=== PATIENT | female | born 1980 | race Caucasian/White ===

== ENCOUNTER → 2019-12-22 11:38 | Outpatient (CLI) | payer OTHER, SELFPAY ==
--- NOTE | ~2019-12-22 | MM_ITS ---
EXAMINATION: MM screening [facility] BI w diaz HISTORY: Screening mammogram TECHNIQUE: Craniocaudal and mediolateral oblique 3-D tomosynthesis images were obtained and synthetic 2-D images were generated. CAD analysis was submitted and interpreted. COMPARISON: None, baseline BREAST PARENCHYMAL COMPOSITION: There are scattered areas of fibroglandular density. FINDINGS: There is no evidence of suspicious mass, calcification, or architectural distortion to sugg est malignancy in either breast. IMPRESSION: 1. No mammographic evidence of malignancy. 2. Recommend routine screening mammography in one year. BI-RADS Category 1: Negative Reviewed, dictated and finalized at location A. TY BOND AGENT
== END ==
PROVIDERS: Visit Provider Nurse Practitioner Women's Health
DX: Z12.31 Encounter for screening mammogram for malignant neoplasm of breast (principal)
CPT/HCPCS: 77063; 77067

== ENCOUNTER → 2020-03-21 10:58 | Outpatient (CLI) | payer OTHER, SELFPAY ==
--- NOTE | ~2020-03-21 | US_ITS ---
EXAMINATION: US pelvic complete w TV DATE: 03/21/2020 11:34 INDICATION: Heavy menstrual bleeding Comparison:No prior studies for comparison. TECHNIQUE: Multiple transabdominal and endovaginal sonographic images of the pelvis performed. FINDINGS: The uterus measures 12.2 x 5.6 x 5.7 cm. There are multiple ill-defined hypoechoic myometri al masses, consistent with uterine fibroids. The endometrial complex measures 6 mm. The right ovary is not demonstrated. The left ovary contains a 2.7 cm cyst. The left ovary measures 3 .4 x 2.9 x 2.5 cm. There is no free fluid in the pelvis. There are no abnormal masses seen on either side. IMPRESSION: 1. Enlarged fibroid uterus, largest discrete fibroid measuring 3 cm. 2: 2.7 cm left ovarian cyst. Reviewed, dictated and finalized at location B. 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
== END ==
PROVIDERS: Visit Provider Obstetrics & Gynecology
DX: N92.0 Excessive and frequent menstruation with regular cycle (principal); N83.202 Unspecified ovarian cyst, left side; D25.9 Leiomyoma of uterus, unspecified
CPT/HCPCS: 76830; 76856

== ENCOUNTER → 2021-07-13 09:45 | Outpatient (CLI) | payer OTHER, SELFPAY ==
--- NOTE | ~2021-07-13 | MM_ITS ---
EXAMINATION: MM screening inder BI w diaz HISTORY: Screening mammogram TECHNIQUE: Craniocaudal and mediolateral oblique 3-D tomosynthesis images were obtained and synthetic 2-D images were generated. CAD analysis was submitted and interpreted. COMPARISON: 12/22/2019 bilateral screening mammogram BREAST PARENCHYMAL COMPOSITION: There are scattered areas of fibroglandular density. FINDINGS: There is no evidence of suspicious mass, calcification, or architectural distortion to sugg est malignancy in either breast. There has been no suspicious interval change. IMPRESSION: 1. No mammographic evidence of malignancy. 2. Recommend routine screening mammography in one year. BI-RADS Category 1: Negative Reviewed, dictated and finalized at location A.
== END ==
PROVIDERS: PCP Obstetrics & Gynecology Gynecologic Oncology; Visit Provider Obstetrics & Gynecology Gynecologic Oncology
DX: Z12.31 Encounter for screening mammogram for malignant neoplasm of breast (principal)
CPT/HCPCS: 77063; 77067

== ENCOUNTER → 2022-12-13 10:23 | Outpatient (CLI) | payer OTHER, SELFPAY ==
--- NOTE | ~2022-12-13 | MM_ITS ---
EXAMINATION: MM screening [facility] BI w diaz HISTORY: Screening mammogram TECHNIQUE: Craniocaudal and mediolateral oblique 3-D tomosynthesis images were obtained and synthetic 2-D images were generated. CAD analysis was submitted and interpreted. COMPARISON: 07/13/2021, 12/22/2019 BREAST PARENCHYMAL COMPOSITION: There are scattered areas of fibroglandular density. FINDINGS: No suspicious mass, calcification, or architectural distortion are identified in either francisco ast to suggest malignancy. There has been no suspicious interval change. IMPRESSION: 1. No mammographic evidence of malignancy. 2. Recommend routine screening mammography in one year. BI-RADS Category 1: Negative Reviewed, dictated and finalized at location A.
== END ==
PROVIDERS: PCP Obstetrics & Gynecology Gynecologic Oncology; Visit Provider Obstetrics & Gynecology Gynecologic Oncology
DX: Z12.31 Encounter for screening mammogram for malignant neoplasm of breast (principal)
CPT/HCPCS: 77063; 77067

== ENCOUNTER 2023-12-26 09:54 | Outpatient (CLI) | payer OTHER, SELFPAY ==
--- NOTE | ~2023-12-26 | MM_ITS ---
EXAMINATION: MM screening [facility] BI w diaz HISTORY: Screening mammogram TECHNIQUE: Craniocaudal and mediolateral oblique 3-D tomosynthesis images were obtained and synthetic 2-D images were generated. CAD analysis was submitted and interpreted. COMPARISON: 12/13/2022, 07/13/2021, 12/22/2019 BREAST PARENCHYMAL COMPOSITION:Not Dense. There are scattered areas of fibroglandular density. FINDINGS: No suspicious mass, calcification, or architectural distortion are identified in either francisco ast to suggest malignancy. There has been no suspicious interval change. IMPRESSION: No mammographic evidence of malignancy. Recommend routine screening mammography in one year. BI-RADS Category 1: Negative Reviewed, dictated and finalized at location . 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
== END 2023-12-26 09:55 | disposition home or self-care (01) ==
PROVIDERS: PCP Obstetrics & Gynecology; Visit Provider Obstetrics & Gynecology
DX: Z12.31 Encounter for screening mammogram for malignant neoplasm of breast (principal)
CPT/HCPCS: 77063; 77067

== ENCOUNTER 2024-04-24 15:53 | Emergency (ER) | payer OTHER, SELFPAY ==
--- NOTE | ~2024-04-24 | XR_ITS ---
EXAM: XR lumbar spine min 4V DATE: 04/24/2024 16:51 HISTORY: pain . COMPARISON: None available. FINDINGS: Cholecystectomy clips. 5 nonrib-bearing lumbar-type vertebral bodies. Pedicles intact. Norm al vertebral body alignment. Vertebral body heights preserved. Mild multilevel degenerative disc dise ase. Normal facets and posterior elements. No fracture or dislocation. IMPRESSION: No acute fracture or traumatic malalignment detected in the lumbar spine. Reviewed, dictated and finalized at location K.
--- OUTSIDE RECORDS SUMMARY | 2024-04-24 15:56 | XMS_ITS ---
Author Organization 1 OF Reema sandy DPM [facility] Address [address] [address] Care Team Providers Care Advanced Manufacturing Engineer Name Role Phone Himanshu Mars M.D. Primary Care Provider Jr Butcher [facility] [phone] REASON FOR VISIT Fluconazole Encounters Encounter Location Date Provider Diagnosis 1 OF [facility] [address] [facility] [address] [place] [address] 01/14/2024 Jr Sy Plan Of Treatment No Information Progress Notes * Argenis GARCIADOB:1980 ([age] yo F)Acc No.[id number]:01/14/2024 Progress Notes Patient: Argenis LEIGH Provider: Irene Sy DPM :1980 A ge:43 Y S ex:Female Date:01/14/2024 Address:[address] [facility] [place] [facility] Pcp:Himanshu Mars M.D. Subjective: * Chief Complaints: * 1 . Fluconazole. * Medical History: Objective: * Vitals: Assessment: Plan: * Treatment: * Images: * Electronic signature of Jr Sy DPM on 04/24/2024 at 03:56 PM CDT Sign off status: Pending * Provider: Irene Sy DPM Date: 1 03/16/2023 Generated for Printi ng/Faxing/eTransmitting on: 0 04/24/2024 03:56 PM CDT
--- OUTSIDE RECORDS SUMMARY | 2024-04-24 15:56 | XMS_ITS ---
Author Organization 1 OF Reema sandy [facility] Address [address] [address] Care Team Providers Care Showroom Salesperson Name Role Phone Himanshu Mars M.D. Primary Care Provider Jr Butcher [facility] [phone] Allergies Allergen (clinical drug ingredient) Drug/Non Drug Allergy documented on EMR Reaction Allergy Type Onset Date Status codeine Codeine Unknown Drug Allergy Active Substance with sulfonamide structure and antibacterial mechanism of action (substance) Sulfa Antibiotics Unknown Drug Allergy Active REASON FOR VISIT fluconazole Medications Medication SIG (Take, Route, Fr equency, Duration) Notes Start Date End Date Status Multivitamin Active Xochilt Active buPROPion HCl Active Fluconazole 150 MG 3 tablets all at onc e Orally once a week for 12 weeks 01/30/2024 Active Fluconazole 150 MG 3 tablets all at onc e Orally once a week for 12 weeks 09/24/2023 Active Vital Signs Height 65 in 01/30/2024 Weight 200 lbs 01/30/2024 BMI 33.28 kg/m2 01/30/2024 Encounters Encounter Location Date Provider Diagnosis 1 OF Reema Mabry [facility] [address] [address] 01/30/2024 Jr Sy Onychomycosis B35.1 Assessments Encounter Date Diagnosis (ICD Code) Assessment Notes Treatment Notes Treatment Clinical Notes Section Notes 01/30/2024 Onychomycosis (ICD-10 - B35.1) Evaluation today included a review of medical history, review of systems, discussion of exam findings, and review of diagnoses and treatment options. I reviewed the diagnosis and treatment plan with the patient and advised the condition seems to be improving and recommended continuation of oral fluconazole 450mg one day per week for another 12 weeks with RTO in 3 months for evaluation of effectiveness. Plan Of Treatment Medication Medication Name Sig Start Date Stop Date Notes Fluconazole 150 MG 3 tablets all at onc e Orally once a week for 12 weeks 01/30/2024 Treatment Notes Assessment Notes Onychomycosis Evaluation today included a review of medical history, review of systems, discussion of exam findings, and review of diagnoses and treatment options. I reviewed the diagnosis and treatment plan with the patient and advised the condition seems to be improving and recommended continuation of oral fluconazole 450mg one day per week for another 12 weeks with RTO in 3 months for evaluation of effectiveness. Next Appt Details Follow Up: prn, Reason: Progress Notes * Argenis GARCIADOB:1980 ([age] yo F)Acc No.[id number]:01/30/2024 Progress Notes Patient: Argenis LEIGH Provider: Irene Sy DPM :1980 A ge:43 Y S ex:Female Date:01/30/2024 Address:[address] [place], [place] [id number] Pcp:Himanshu Mars M.D. Subjective: * Chief Complaints: * F luconazole * HPI: Champ Romero assisting with visit:: HPI/Rooming: Kelly zhang reason for visit:: 53 y/o Male RTO for f/u of 43 y/o Female RTO for f/u of onychomychosis. At last visit treatment consisted of rx for Fluconazole over the course of 3 months.Pt states that the ontchomycosis is gone and she has had no issues with treatment. * Medical History: * Surgical History: N o Surgical History documented. * Hospitalization/Major Diagno stic Procedure: N o Hospitalization History. * Family History: N o Family History documented.. * Medications: T akingMultivitamin Xochilt buPROPion HCl Fluconazole 150 MG Tablet 3 tablets all at once Orally once a week Medication List reviewed and reconciled with the patientTaking Multivitamin Taking Xochilt Taking buPROPion HCl Taking Fluconazole 150 MG Tablet 3 tablets all at once Orally once a week Medication List reviewed and reconciled with the patient * Allergies: S ulfa AntibioticsCodeineno[Allergies Verified] Objective: * Vitals: W t:200lbs, Wt-k.72 kg, Ht:65in, BMI:33.28Index. * Examination: G eneral Examination: Constitutional / Appearance: N o acute distress , Well nourished, Appropriate personal hygiene. Mental status: C ooperative, Oriented to person, place and time, Mood and affect: normal, Judgement and intellect: normal with appropriate response to questions. Shoes today: XXXX. Nails: Nail plates of:, T 5, a ppear, r elatively thickened, d ystrophic, d iscolored, w ith subungual debris. Assessment: * Assessment: 1. O nychomycosis - B35.1 (Primary) Plan: * Treatment: * Procedure Codes: * Preventive Medicine: Counseling: C are goal follow-up plan: BMI counseling provided to patient:?Lifestyle education * Follow Up: p rn * Images: Drawing:mobile_01/29 10:04:56 * AUDIT MANAGER Sign off status: Completed true * Provider: Irene Sy DPM Date: 1 04/01/2023 Generated for Carolyn stuart/Naveen/Jeovany on: 0 04/24/2024 03:55 PM CDT History and Physical Notes * HPI (History of Present Illness) Category Sub-Category Detail Notes Category Not es Primary reason for visit: 53 y/o Male RTO for f/u of 43 y/o Female RTO for f/u of onychomychosis. At last visit treatment consisted of rx for Fluconazole over the course of 3 months.Pt states that the ontchomycosis is gone and she has had no issues with treatment. MA assisting with visit: HPI/Rooming: Suleman Examination Category Sub-Category Detail Notes Category Not es General Examination Mental status: Cooperative, Oriented to person, place and time, Mood and affect: normal, Judgement and intellect: normal with appropriate response to questions Nails: Nail plates of:, T5, appear, relatively thickened, dystrophic, discolored, with subungual debris. Shoes today: XXXX Constitutional / Appearance: No acute di stress , Well nourished, Appropriate personal hygiene
--- OUTSIDE RECORDS SUMMARY | 2024-04-24 15:56 | XMS_ITS | Patient Health Record ---
Author Organization 1 OF Reema sandy [facility] Address [address] [facility] [address] [place] [address] Care Team Providers Care Metal Cleaner Name Role Phone Himanshu Mars M.D. Primary Care Provider Jr Butcher [phone] Allergies Allergen (clinical drug ingredient) Drug/Non Drug Allergy documented on EMR Reaction Allergy Type Onset Date Status codeine Codeine Unknown Drug Allergy Active Substance with sulfonamide structure and antibacterial mechanism of action (substance) Sulfa Antibiotics Unknown Drug Allergy Active Results Component Value Reference Range Notes Chem-12 (complete metabolic panel) Reviewed date:09/05/2023 12:00:01 PM Interpretation:All labs WNL. Performing Lab: Notes/Report: All labs WNL. [facility] Pathology : Nail biop sy - higher sensitivity (PAS, GMS)[facility] Pathology : Nail biopsy - Fungus Identification - PCR Assay Reviewed date:09/04/2023 09:00:17 AM Interpretation:A PAS reaction and GMS stain demonstrate fungal element. Performing Lab: Notes/Report: A PAS reaction and GMS stain demonstrate fungal element. Reason For Referral No Information Medications Medication SIG (Take, Route, Fr equency, Duration) Notes Start Date End Date Status Multivitamin Active Xochilt Active buPROPion HCl Active Fluconazole 150 MG 3 tablets all at onc e Orally once a week for 12 weeks 01/30/2024 Active Fluconazole 150 MG 3 tablets all at onc e Orally once a week for 12 weeks 09/24/2023 Active Social History Tobacco Use: Social History Observation Description Date Details (start date - stop date) Never Smoker NA - NA Tobacco Control (Standard) Question Answer Notes Tobacco use: Nonsmoker Vital Signs Height 65 in 01/30/2024 Weight 200 lbs 01/30/2024 BMI 33.28 kg/m2 01/30/2024 Encounters Encounter Location Date Provider Diagnosis 1 OF Reema Mabry [facility] [address] [place] [address] 08/29/2023 Jr Sy Onychogryphosis L60. 2 ; Ingrowing nail L60.0 and Toe pain, left M79.675 1 OF Reema Mabry [place] [address] [place] [address] 09/24/2023 Jr Kerrie Onychomycosis B35.1 1 OF Reema Mabry [facility] [address] [place] [address] 01/30/2024 Jr Sy Onychomycosis B35.1 1 OF Reema Mabry [place] [address] [place] [address] 08/28/2023 Jr Sy 1 OF Reema Mabry [place] [address] [place] [address] 09/03/2023 Jr Sy 1 OF Reema Mabry [place] [address] [place] [address] 09/05/2023 Jr Sy Assessments Encounter Date Diagnosis (ICD Code) Assessment Notes Treatment Notes Treatment Clinical Notes Section Notes 08/29/2023 Onychogryphosis (ICD-10 - L60.2) Discussed tx options including topical and/or oral antifungal. The patient was advised no guarantee with any treatment. Patient is interested in treatment with oral medication and I thus recommended confirming presence of fungus and potentially confirming the type of fungus present as one variety of fungus may respond better to one medication vs another. Nail biopsy performed to symptomatic nail and submitted for PAS and fungal assay test. I also advised treatment of fungus with prolonged course of oral anti-fungal medication requires a blood test to insure no pre-existing liver or kidney condition exists. Dispensed order for blood test. Dispensed literature discussing onychomycosis. We will hold off on any medication pending results of nail biopsy and Chem-12. We will see patient back in 1 month to review results of nail biopsy and blood tests. Patient demonstrated understanding of the plan. 09/24/2023 Onychomycosis (ICD-10 - B35.1) Evaluation today included a review of medical history, review of systems, discussion of exam findings, and review of diagnoses and treatment options. I reviewed the results of the nail biopsy which indicated presence of fungus and recommended proceeding with oral antifungal for best results. Discussed and recommended oral fluconazole including potential for side effects and the dosing instructions consisting of taking three 150mg tablets once weekly for 8-12 months. Advised follow-up visit in 3 months for evaluation of effectiveness of the medication. Patient advised to contact office with any concerns or to report any side effects. All questions were answered and the patient desires to proceed with treatment. (Rx fluconazole 150mg, 3 tablets once weekly x 12 weeks, dispense 36 tabs, No refills) 01/30/2024 Onychomycosis (ICD-10 - B35.1) Evaluation today [...] in 3 months for evaluation of effectiveness. 08/29/2023 Ingrowing nail (ICD-10 - L60.0) Discussed ingrown toenail condition and explained in detail conservative and surgical options of care including debridement / slant back procedure vs nail avulsion vs matrixectomy. Discussed pros and cons of each procedure including temporary relief vs more permanent relief with matrixectomy procedure but longer healing time. ; Patient elected to proceed with matrixectomy procedure of the affected toe(s). 08/29/2023 Toe pain, left (ICD-10 - M79.675) Plan Of Treatment No Information Insurance Providers Payer Name Payer Address Payer Phone Subscriber Number Group Number Insured Name Patient Relationship to Insured Coverage Start Date Coverage End Date Aryan [address] [place] [id number] Argenis Ahn Self - patient is the insured Medical (General) History Medical History History ICD Code asthma
--- OUTSIDE RECORDS SUMMARY | 2024-04-24 15:56 | XMS_ITS ---
Author Organization 1 OF Reema sandy [facility] Address [address] [facility] [address] [place] [address] Care Team Providers Care Architecture Intern Name Role Phone Himanshu Mars M.D. Primary Care Provider rJ Butcher [facility] [phone] Allergies Allergen (clinical drug ingredient) Drug/Non Drug Allergy documented on EMR Reaction Allergy Type Onset Date Status codeine Codeine Unknown Drug Allergy Active Substance with sulfonamide structure and antibacterial mechanism of action (substance) Sulfa Antibiotics Unknown Drug Allergy Active REASON FOR VISIT Bako/Labs Medications Medication SIG (Take, Route, Fr equency, Duration) Notes Start Date End Date Status Multivitamin Active Xochilt Active buPROPion HCl Active Fluconazole 150 MG 3 tablets all at onc e Orally once a week for 12 weeks 09/24/2023 Active Vital Signs Height 65 in 09/24/2023 Weight 200 lbs 09/24/2023 BMI 33.28 kg/m2 09/24/2023 Encounters Encounter Location Date Provider Diagnosis 1 OF Reema Mabry [facility] [address] [facility] [address] [place] [address] 09/24/2023 Jr Sy Onychomycosis B35.1 Assessments Encounter Date Diagnosis (ICD Code) Assessment Notes Treatment Notes Treatment Clinical Notes Section Notes 09/24/2023 Onychomycosis (ICD-10 - B35.1) Evaluation today [...] 12 weeks, dispense 36 tabs, No refills) Plan Of Treatment Medication Medication Name Sig Start Date Stop Date Notes Fluconazole 150 MG 3 tablets all at onc e Orally once a week for 12 weeks 09/24/2023 Treatment Notes Assessment Notes Onychomycosis Evaluation today [...] 12 weeks, dispense 36 tabs, No refills) Next Appt Details Follow Up: 3.5 months, Reaso n: Progress Notes * JOSE, ArgenisDOB:1980 ([age] yo F)Acc No.[id number]:09/24/2023 Progress Notes Patient: Argenis LEIGH Provider: Irene Sy DPM :1980 A ge:43 Y S ex:Female Date:09/24/2023 Address:[address] [place], [place] [id number] Pcp:Himanshu Mars M.D. Subjective: * Chief Complaints: * B ako/Labs * HPI: Champ Romero assisting with visit:: HPI/Rooming: Ryan. Luci zhang reason for visit:: 43 y/o F RTO for f/u onychogryphosis. At last visit orders for BAKO and CMP were sent. Pt also RTO for f/u matrixectomy. At last visit Pt had medial nail bed matrixectomy of TA and Rx for neomycin drops was dispensed. Today pt reports doing fine. * Medical History: * Surgical History: N o Surgical History documented. * Hospitalization/Major Diagno stic Procedure: N o Hospitalization History. * Family History: N o Family History documented.. * Medications: T akingMultivitamin Xochilt buPROPion HCl Taking Multivitamin Taking Xochilt Taking buPROPion HCl ActeveaauqzmDpvrklwm-Hmjqztqlx-Hfcaxtdl 0.1 % Suspension 1-2 drops to affected toe(s) until healed topical daily Medication List reviewed and reconciled with the patientDiscontinued Ualujknn-Ckuljjfva-Ykrofrmn 0.1 % Suspension 1-2 drops to affected toe(s) until healed topical daily Medication List reviewed and reconciled with the patient * Allergies: S ulfa AntibioticsCodeineno[Allergies Verified] Objective: * Vitals: W t:200lbs, Wt-k.72 kg, Ht: 65 in, BMI:33.28Index. * P ast Orders: L ab:Chem-12 (complete metabolic panel) (Order Date - 08/29/2023) (Collection Date & Time - 09/05/2023) Result: All labs WNL. L ab:[facility] Pathology : Nail biopsy - higher sensitivity (PAS, GMS)[facility] Pathology : Nail biopsy - Fungus Identification - PCR Assay (Order Date - 08/29/2023) (Collection Date & Time - 09/03/2023) Result: A PAS reaction and GMS stain demonstrate fungal element. * Examination: G eneral Examination: Constitutional / Appearance: N o acute distress , Well nourished, Appropriate personal hygiene. Mental status: C ooperative, Oriented to person, place and time, Mood and affect: normal, Judgement and intellect: normal with appropriate response to questions. Shoes today: f lats, . L ower Extremity DERM: : Nails: N ail plates of:, T5, appear, relatively thickened, dystrophic, discolored, with subungual debris. Assessment: * Assessment: 1. O nychomycosis - B35.1 (Primary) Plan: * Treatment: * Procedure Codes: * Follow Up: 3 .5 months * Images: Drawing:mobile_09/23 08:16:31 * Sign off status: Completed true * Provider: Irene Sy DPM Date: 0 09/24/2023 Generated for Carolyn stuart/Naveen/Jeovany on: 0 04/24/2024 03:56 PM CDT History and Physical Notes * HPI (History of Present Illness) Category Sub-Category Detail Notes Category Not es Primary reason for visit: 43 y/o F RTO for f/u onychogryphosis. At last visit orders for BAKO and CMP were sent. Pt also RTO for f/u matrixectomy. At last visit Pt had medial nail bed matrixectomy of TA and Rx for neomycin drops was dispensed. Today pt reports doing fine. MA assisting with visit: HPI/Rooming: Axel Examination Category Sub-Category Detail Notes Category Not es General Examination Mental status: Cooperative, Oriented to person, place and time, Mood and affect: normal, Judgement and intellect: normal with appropriate response to questions Shoes today: flats, Exam unchanged from prior visit: Constitutional / Appearance: No acute di stress , Well nourished, Appropriate personal hygiene Lower Extremity DERM: Nails: Nail plate s of:, T5, appear, relatively thickened, dystrophic, discolored, with subungual debris
[2024-04-24 16:08] VITALS: BP 100/72; PULSE 81; RESP 20; TEMP 36.4; O2SAT 100
[2024-04-24 18:10] VITALS: BP 133/71; PULSE 77; RESP 18; O2SAT 100
--- OUTSIDE RECORDS SUMMARY | 2024-04-24 18:23 | XMS_ITS | Encounter Summary ---
Author Organization [facility] Address [facility] [place] [address] Care Team Providers Care Manager Council Name Role Phone Himanshu Mars MD Primary Care Provider + Encounter Details Date Type Department Care Team (Late st Contact Info) Description 02/25/2002 Abstract [facility] Conversion Md, Generic Conversion, Social History Tobacco Use Types Packs/Day Years Used Date Smoking Tobacco: Never Assessed Comments Unknown Sex and Gender Information Value Date Recorded Sex Assigned at Not on file Legal Sex Female 5:06 PM CDT Gender Identity Not on file Sexual Orientation Not on file documented as of this encounter Plan of Treatment Not on file documented as of this encounter Visit Diagnoses Not on filedocumented in this encounter Additional Health Concerns Infection Onset Date Last Indicated Resolved Time COVID-19 Rule Out 05/13/2020 05/13/2020 05/14/2020 4:11 PM CDT documented as of this encounter Care Teams Manager Council Relationship Specialty Start Date End Date Himanshu Mars MD [address] [facility] [address] [place] [address] PCP - General FAMILY PRACTICE 10/16/18 documented as of this encounter
--- OUTSIDE RECORDS SUMMARY | 2024-04-24 18:23 | XMS_ITS | Encounter Summary ---
Author Organization [facility] Address [facility] [place] [address] Care Team Providers Care Carton Waxing Machine Operator Name Role Phone Himanshu Mars MD Primary Care Provider + Encounter Details Date Type Department Care Team (Late st Contact Info) Description 11/20/2020 [employer] Message [address] [phone] [facility], [facility] Provider results Social History Tobacco Use Types Packs/Day Years Used Date Smoking Tobacco: Never Smokeless Tobacco: Never Alcohol Use Standard Drinks/Week Comments Yes 0 (1 standard drink = 0.6 oz pur e alcohol) social AUDIT-C Answer Date Recorded Frequency of Alcohol Consumption Never 09/15/2018 Average Number of Drinks Not on file 019 Frequency of Binge Drinking Not on file 07/2018 PHQ-2 Answer Date Recorded PHQ-2 Score - If the patient scores above 3, please move on to questions 3-9 0 09/29/2020 Comments No Sex and Gender Information Value Date Recorded Sex Assigned at Not on file Legal Sex Female 5:06 PM CDT Gender Identity Not on file Sexual Orientation Not on file COVID-19 Exposure Response Date Recorded In the last month, have you been in contact with someone who was confirmed or suspected to have Coronavirus / COVID-19? No / Unsure 11/13/2020 4:30 PM CDT documented as of this encounter Plan of Treatment Not on file documented as of this encounter Visit Diagnoses Not on filedocumented in this encounter Additional Health Concerns Assessment Noted Time PHQ-9 Depression Total Score: 0 09/30/19 21 3:52 PM CDT documented as of this encounter Care Teams Carton Waxing Machine Operator Relationship Specialty Start Date End Date Himanshu Mars MD [address] [facility] [address] [place] [phone] PCP - General FAMILY PRACTICE 10/16/18 documented as of this encounter
--- OUTSIDE RECORDS SUMMARY | 2024-04-24 18:23 | XMS_ITS | Encounter Summary ---
Author Organization [facility] Address [facility] [place] [address] Care Team Providers Care Hardware Installation Coordinator Name Role Phone Himanshu Mars MD Primary Care Provider + Encounter Details Date Type Department Care Team (Late st Contact Info) Description 10/09/2020 [employer] Message [address] [phone] [facility], [facility] Provider MRI Social History Tobacco Use Types Packs/Day Years Used Date Smoking Tobacco: Never Smokeless Tobacco: Never Alcohol Use Standard Drinks/Week Comments Yes 0 (1 standard drink = 0.6 oz pur e alcohol) social AUDIT-C Answer Date Recorded Frequency of Alcohol Consumption Never 09/15/2018 Average Number of Drinks Not on file 019 Frequency of Binge Drinking Not on file 0807/2018 PHQ-2 Answer Date Recorded PHQ-2 Score - [...] have Coronavirus / COVID-19? No / Unsure 09/29/2020 10:34 AM CDT documented as of this encounter Plan of Treatment Not on file documented as of this encounter Visit Diagnoses Not on filedocumented in this encounter Additional Health Concerns Assessment Noted Time PHQ-9 Depression Total Score: 0 09/30/19 21 3:52 PM CDT documented as of this encounter Care Teams Hardware Installation Coordinator Relationship Specialty Start Date End Date Himanshu Mars MD [address] [facility] [address] [place] [phone] PCP - General FAMILY PRACTICE 10/16/18 documented as of this encounter
--- OUTSIDE RECORDS SUMMARY | 2024-04-24 18:23 | XMS_ITS | Encounter Summary ---
Author Organization [facility] Address [facility]6 [place] [address] Care Team Providers Care Energy Professional Name Role Phone Himanshu Mars MD Primary Care Provider + Encounter Details Date Type Department Care Team (Late st Contact Info) Description 01/13/2023 [employer] Message [facility] [address] [place] [address] Himanshu Mars MD [address] [place] [address] [place] [address] COVID-19 Positive Test Social History Tobacco Use Types Packs/Day Years Used Date Smoking Tobacco: Never Smokeless Tobacco: Never Alcohol Use Standard Drinks/Week Comments Yes 0 (1 standard drink = 0.6 oz pur e alcohol) Socially AUDIT-C Answer Date Recorded Frequency of Alcohol Consumption Never 09/15/2018 Average Number of Drinks Not on file 019 Frequency of Binge Drinking Not on file 07/2018 PHQ-2 Answer Date Recorded Patient Health Questionnaire-2 Score 0 01/18/2022 Comments No Sex and Gender Information Value Date Recorded Sex Assigned at Not on file Legal Sex Female 5:06 PM CDT Gender Identity Not on file Sexual Orientation Not on file documented as of this encounter Plan of Treatment Not on file documented as of this encounter Results * (ABNORMAL) BASIC METABOLIC PANEL (01/16/2023 9:33 AM DOUBLE NEEDLE OPERATOR) [facility] Signature GLUCOSE 88 70 - 99 MG/DL 01/16/2023 10:14 AM [facility] BUN 10 7 - 18 MG/DL 01/16/2023 10:14 AM [facility] CREATININE S/P/B 0.85 0.55 - 1.02 MG/DL 01/16/2023 10:14 AM [facility] SODIUM S/P/B 140 136 - 145 MMOL/L 01/16/2023 10:14 AM [facility] POTASSIUM S/P/B 4.0 3.5 - 5.1 MMOL/L 01/16/2023 10:14 AM [facility] CHLORIDE S/P/B 103 100 - 108 MMOL/L 01/16/2023 10:14 AM [facility] CO2 28.8 21 - 32 MMOL/L 01/16/2023 10:14 AM [facility] CALCIUM S/P/B 8.6 8.5 - 10.1 MG/DL 01/16/2023 10:14 AM [facility] ANION GAP 8.2 5 - 15 MMOL/L 01/16/2023 10:14 AM [facility] BUN CREATININE RATIO 11.8 6 - 26 01/16/2023 10:14 AM [facility] GFR ESTIMATE 87(L) >90 ML/MIN/1.7 3 M2 01/16/2023 10:14 AM [facility] Comment: NOTE: eGFR is not calculated for patients <18 years of age. This is an estimated GFR calculation using the new CKD EPI creatinine equation without race and so does not require a correction factor for race. This estimated GFR should not be used for calculating drug doses. 01/16/2023 9:33 AM DOUBLE NEEDLE OPERATOR Himanshu Mars MD LABORATORY Final Re sult [facility] [address] [place] [address], documented in this encounter Visit Diagnoses Diagnosis COVID- Primary documented in this encounter Additional Health Concerns Assessment Noted Time PHQ-9 Depression Total Score: 0 03/27/19 22 4:43 PM DOUBLE NEEDLE OPERATOR documented as of this encounter Care Teams Energy Professional Relationship Specialty Start Date End Date Himanshu Mars MD [address] [phone] PCP - General FAMILY PRACTICE 10/16/18 documented as of this encounter
--- OUTSIDE RECORDS SUMMARY | 2024-04-24 18:23 | XMS_ITS | Encounter Summary ---
Author Organization [facility] Address [facility] [place] [address] Care Team Providers Care Director Of Product Marketing Name Role Phone Himanshu Mars MD Primary Care Provider + Encounter Details Date Type Department Care Team (Late st Contact Info) Description 10/17/2020 [employer] Message [facility] [address] [place] [address] Himanshu Mars MD [address] [place] [address] [place] [address] RE: Follow Up/Update Social History Tobacco Use Types Packs/Day Years [...] documented as of this encounter Care Teams Director Of Product Marketing Relationship Specialty Start Date End Date Himanshu Mars MD [address] [phone] PCP - General FAMILY PRACTICE 10/16/18 documented as of this encounter
--- OUTSIDE RECORDS SUMMARY | 2024-04-24 18:23 | XMS_ITS | Encounter Summary ---
Author Organization [facility] Address [facility] [place] [address] Care Team Providers Care Supervisor Carbon Paper Coating Name Role Phone Himanshu Mars MD Primary Care Provider + Encounter Details Date Type Department Care Team (Late st Contact Info) Description 09/25/2020 [email or web address] Message [employer] [facility] [facility] [address] [place] [address] [employer], [facility] Provider RE: Request to Access a Minor's Record Social History Tobacco Use Types Packs/Day Years [...] Diagnoses Not on filedocumented in this encounter Care Teams Supervisor Carbon Paper Coating Relationship Specialty Start Date End Date Himanshu Mars MD [address] [facility] [address] [place] [phone] PCP - General FAMILY PRACTICE 10/16/18 documented as of this encounter
--- OUTSIDE RECORDS SUMMARY | 2024-04-24 18:23 | XMS_ITS | Encounter Summary ---
Author Organization [facility] Address [facility] [place] [address] Care Team Providers Care Area Manager Name Role Phone Himanshu Mars MD Primary Care Provider + Encounter Details Date Type Department Care Team (Late st Contact Info) Description 01/21/2022 American Board of Addiction Medicine (ABAM) Message [address] [phone] [employer], [facility] Provider results Social History Tobacco Use Types [...] on file 0807/2018 PHQ-2 Answer Date Recorded Patient Health Questionnaire-2 Score 0 01/18/2022 Comments No Sex and Gender Information Value Date Recorded Sex Assigned at Not on file Legal Sex Female 5:06 PM CDT Gender Identity Not on file Sexual Orientation Not on file COVID-19 Exposure Response Date Recorded In the last 10 days, have yo u been in contact with someone who was confirmed or suspected to have Coronavirus/COVID-19? No / Unsure 01/18/2022 3:40 PM BIOLOGICAL INSPECTOR documented as of this encounter Plan of Treatment Not on file documented as of this encounter Visit Diagnoses Not on filedocumented in this encounter Additional Health Concerns Assessment Noted Time PHQ-9 Depression Total Score: 0 03/27/19 22 4:43 PM BIOLOGICAL INSPECTOR documented as of this encounter Care Teams Area Manager Relationship Specialty Start Date End Date Himanshu Mars MD [address] [facility] [address] [place] [phone] PCP - General FAMILY PRACTICE 10/16/18 documented as of this encounter
--- OUTSIDE RECORDS SUMMARY | 2024-04-24 18:23 | XMS_ITS | Clinical Summary ---
Author Organization [facility] Address [address] [place] [address] Care Team Providers Care Temper Mill Roller Name Role Phone Himanshu Mars MD Primary Care Provider + Allergies Active Allergy Reactions Criticality Noted Date Comments Codeine Hives 05/31/2014 Sulfa Antibiotics Hives,Shortness of Breath High Medications fluticasone propionate 50 MCG/ACT nasal spray 1 spray by Nasal route daily. 8 Active Multiple Vitamin (MULTIVITAMIN ADULT OR) Take 1 tablet by mouth daily. Active vitamin B-12 (CYANOCOBALAMIN) 1000 mcg tablet Take 1 tablet (1,000 mcg total) by mouth daily. Active ibuprofen 800 MG tablet Take 1 tablet (800 mg total) by mouth every 6 (six) hours as needed for Pain. Active gabapentin (NEURONTIN) 300 MG capsuleIndications :Cervical radiculopathy Take 1 capsule (300 mg total) by mouth 3 (three) times daily. 90 capsule 2 Active phentermine-topira mate (QSYMIA) 3.75-23 MG 24 hr capsule Take 1 capsule by mouth daily. Active ondansetron (ZOFRAN-ODT) 4 MG disintegrating tablet Take 1 tablet (4 mg total) by mouth every 8 (eight) hours as needed for Nausea. 20 tablet 3 Active buPROPion XL (WELLBUTRIN XL) 300 MG 24 hr tabletIndications: Mood disorder Take 1 tablet (300 mg total) by mouth daily. Please keep scheduled appt 90 tablet 3 4 Active Active Problems Problem Noted Date Diagnosed Date Pelvic pain 05/16/2020 Endometriosis 05/16/2020 Abnormal uterine bleeding 05/16/2020 Bulky or enlarged uterus 05/16/2020 Scar tissue 05/16/2020 Mood disorder 09/16/2018 Allergic rhinitis 09/16/2018 Encounters Date Type Department Care Team Description 01/30/2024 Scan [facility] INFO SRVCS Scanned, [facility] from Last 3 Months Immunizations Name Administration Dates Next Due Fluzone 6 Months+ Quad (0.5 mL Prefilled Syringe) 12/11/2018 Influenza (Generic) 01/06/2012 Influenza Adult (Generic) 12/30/2022,,01/26/2021, 021,11/17/2013,12/11/2012 PFIZER COVID-19 (ORIGINAL FORMULATION, PURPLE CAP) mRNA, LNP-S, PF, 30 MCG/0.3 ML DOSE 05/02/2020,04/11/2020 Tdap (Generic) 12/14/2012 Family History Medical History Relation Comments No Known Problems Brother No Known Problems Daughter Arthritis Father Both parents and grandparents Depression Father Heart Attack Father Heart Disease Father Both smoked Hypertension Father Cancer Maternal Grandmother Breast Heart Attack Mother Heart Disease Mother Stroke Mother No Known Problems Sister 1 No Known Problems Sister 2 No Known Problems Son Relation Status Comments Brother Alive Daughter Alive Father Alive Maternal Grandmother Mother Alive Sister 1 Alive Sister 2 Alive Son Alive Social History Tobacco Use Types Packs/Day Years Used Date Smoking Tobacco: Never Passive Smoke Exposure: Past Smokeless Tobacco: Never Tobacco Cessation:Counseling Given: No Alcohol Use Standard Drinks/Week Comments Yes 0 (1 standard drink = 0.6 oz pur e alcohol) Socially AUDIT-C Answer Date Recorded Frequency of Alcohol Consumption Never 09/15/2018 Average Number of Drinks Not on file 019 Frequency of Binge Drinking Not on file 07/2018 PHQ-2 Answer Date Recorded Patient Health Questionnaire-2 Score 0 03/28/2023 Comments No Sex and Gender Information Value Date Recorded Sex Assigned at Not on file Legal Sex Female 5:06 PM CDT Gender Identity Not on file Sexual Orientation Not on file Last Filed Vital Signs Vital Sign Reading Time Taken Comments Blood Pressure 112/66 03/28/2023 8:50 AM INORGANIC CHEMIST Pulse 85 03/28/2023 8:50 AM INORGANIC CHEMIST Temperature 37.3 C (99.2 F) 03/28/2023 8:50 AM INORGANIC CHEMIST Respiratory Rate 18 03/28/2023 8:50 AM INORGANIC CHEMIST Oxygen Saturation 98% 03/28/2023 8:50 AM INORGANIC CHEMIST Inhaled Oxygen Concentration - - Weight 94.7 kg (208 lb 12.8 oz) 03/28/2023 8:50 AM INORGANIC CHEMIST Height 170.2 cm (5' 7 ) 03/28/2023 8:50 AM INORGANIC CHEMIST Body Mass Index 32.7 03/28/2023 8:50 AM INORGANIC CHEMIST Plan of Treatment Health Maintenance Due Date Last Done Comments Annual Physical 05/27/1982 Hepatitis C 05/27/1997 Hepatitis B Vaccines (1 of 3 - 19+ 3-dose series) 05/27/1998 DTaP, Tdap and Td Vaccines (2 - Td or Tdap) 12/14/2022 12/14/2012 COVID-19 Vaccine ( season) 2023 12/30/2022, 12/06/2021, 01/26/2021, Additional history exists Influenza Adult (#1) 2023 12/30/2022, 12/06/2021, 01/26/2021, Additional history exists PHQ-2 (Physician Venetie) 02/11/2024 03/28/2023 PHQ-2 (Physician Venetie) 03/28/2024 03/28/2023 Mammogram Screening 12/13/2024 12/13/2022 HPV Vaccines Aged Out No longer eligi ble based on patient's age to complete this topic Meningococcal B Vaccine Aged Out No l onger eligible based on patient's age to complete this topic Meningococcal Vaccine Aged Out No angel dell eligible based on patient's age to complete this topic Pneumococcal Vaccine: Pediatrics (0 to 5 Years) and At-Risk Patients (6 to 64 Years) Aged Out No longer eligible based on patient's age to complete this topic RSV Immunizations Under 20 Months Aged Out No longer eligible based on patient's age to complete this topic Procedures Procedure Name Priority Date/Time Associated Diagnosis Comments MAMMOGRAM GENERIC (SCAN ORDER) 12/13/2022 from Last 3 Months or Most Recently Relevant to Health Maintenance Results * MAMMOGRAM GENERIC (SCAN ORDER) (12/13/2022) Anatomical Region Laterality Modality Other 12/13/2022 us Doc [facility] Scanned SCANNING Final Resu lt from Last 3 Months or Most Recently Relevant to Health Maintenance Insurance [facility] Advance Directives * Full Code (Latest Code Status on File) Date Activated Date Inactivated Comments 05/16/2020 7:42 PM 05/17/2020 3:03 AM Care Teams Temper Mill Roller Relationship Specialty Start Date End Date Himanshu Mars MD [address] [facility] [address] [place] [address] PCP - General FAMILY PRACTICE 10/16/18
--- OUTSIDE RECORDS SUMMARY | 2024-04-24 18:23 | XMS_ITS | Encounter Summary ---
Author Organization [facility] Address [facility] [place] [address] Care Team Providers Care Semiautomatic Stitcher Operator Name Role Phone Himanshu Mars MD Primary Care Provider + Encounter Details Date Type Department Care Team (Late st Contact Info) Description 05/16/2020 Prep for Procedure [facility] Pre-Admission Testing [address] [place], [place] [id number] Soraida Gómez DO [address] [place] [address] Social History Tobacco Use Types Packs/Day Years [...] please move on to questions 3-9 0 05/04/2020 Comments No Sex and Gender Information Value Date Recorded Sex Assigned at Not on file Legal Sex Female 5:06 PM CDT Gender Identity Not on file Sexual Orientation Not on file COVID-19 Exposure Response Date Recorded In the last month, have you been in contact with someone who was confirmed or suspected to have Coronavirus / COVID-19? No / Unsure 05/16/2020 10:06 AM CDT documented as of this encounter Plan of Treatment Not on file documented as of this encounter Results * TYPE & SCREEN (05/13/2020 11:25 AM CDT) ABO/RH O POSITIVE 05/13/2020 2:16 PM CDT [facility] ANTIBODY SCREEN NEGATIVE 05/13/2020 2:16 PM CDT [facility] SAMPLE EXPIRATION 05/16/2020,2 359 05/13/2020 2:16 PM CDT [facility] 05/13/2020 11:2 5 AM CDT us Soraida Rico DO BLOOD BANK TEST ORDERABLES Final Result [facility] [address] [place] [address], * (ABNORMAL) CBC W/DIFF AUTOMATED (05/13/2020 11:25 AM CDT) WBC 7.2 4.5 - 11.0 x10'3/uL 05/13/2020 12:10 PM CDT [facility] RBC 4.54 4.20 - 5.40 x10'6/uL 05/13/2020 12:10 PM CDT [facility] HGB 12.6 12.0 - 16.0 G/DL 05/13/2020 12:10 PM CDT [facility] HCT 38.2 38.0 - 48.0 % 05/13/2020 12:10 PM CDT [facility] MCV 84.1 81.0 - 99.0 FL 05/13/2020 12:10 PM CDT [facility] MCH 27.8 27.0 - 31.0 PG 05/13/2020 12:10 PM CDT [facility] MCHC 33.0 32.0 - 36.0 G/DL 05/13/2020 12:10 PM CDT [facility] RDW 13.2 11.5 - 14.5 % 05/13/2020 12:10 PM CDT [facility] PLT 293 130 - 400 x10'3/uL 05/13/2020 12:10 PM CDT [facility] MPV 10.5 9.3 - 12.2 FL 05/13/2020 12:10 PM CDT [facility] DIFFERENTIAL TYPE AUTOMATED DIFFERENTIAL 05/13/2020 12:10 PM CDT [facility] NEUTROPHILS % 57.9 % 05/13/2020 12:10 PM CDT [facility] LYMPHOCYTES % 29.1 % 05/13/2020 12:10 PM CDT [facility] MONOCYTES % 8.5 % 05/13/2020 12:10 PM CDT [facility] EOSINOPHILS 2.6 % 05/13/2020 12:10 PM CDT [facility] BASOPHILS 1.3 % 05/13/2020 12:10 PM CDT [facility] IMMATURE GRANS % 0.6 % 05/14/19 12:10 PM CDT [facility] ABS. NEUTROPHILS TOTAL 4.16 1.80 - 7.70 x10'3/uL 05/13/2020 12:10 PM CDT [facility] ABS. LYMPHOCYTES 2.09 1.00 - 4.80 x10'3/uL 05/13/2020 12:10 PM CDT [facility] ABS. MONOCYTES 0.61 0.24 - 0.86 x10'3/uL 05/13/2020 12:10 PM CDT [facility] ABS. EOSINOPHILS 0.19 0.04 - 0.36 x10'3/uL 05/13/2020 12:10 PM CDT [facility] ABS. BASOPHILS 0.09(H) 0.01 - 0.08 x10'3/uL 05/13/2020 12:10 PM CDT [facility] ABS. IMMATURE GRANULOCYTES 0.04 0.00 - 0.49 x10'3/uL 05/13/2020 12:10 PM CDT [facility] 05/13/2020 11:2 5 AM CDT us Soraidaminnie Gómez DO LABORATORY Final Resul t [facility] [address] [place] [address], * PRE-SURGICAL/PRE-PROCEDURE CORONAVIRUS (COVID 19) (05/13/2020 10:52 AM CDT) CORONAVIRUS SARS COV 2 PCR (RESP) NOT DETECTED NOT DETECTED 05/14/2020 4:10 PM CDT [facility] Comment: A Not Detected (negative) test result for this test means that SARS- CoV-2 RNA was not present in the specimen above the limit of detection. A negative result does not rule out the possibility of COVID-19 and should not be used as the sole basis for treatment or patient management decisions. If COVID-19 is still suspected, based on exposure history together with other clinical findings, re-testing should be considered in consultation with public health authorities. Laboratory test results should always be considered in the context of clinical observations and epidemiological data in making a final diagnosis and patient management decisions. Please review the Fact Sheets and FDA authorized labeling available for health care providers and patients using the following websites: https://[email or web address]/home/Covid-19/HCP/[employer]/fact- sheet.html [email or web address]://[email or web address]/home/Covid-19/Patients/ [employer]/fact-sheet.html This test has been authorized by the FDA under an Emergency Use Authorization (EUA) for use by authorized laboratories. Due to the current public health emergency, [facility] is receiving a high volume of samples from a wide variety of swabs and media for COVID-19 testing. In order to serve patients during this public health crisis, samples from appropriate clinical sources are being tested. Negative test results derived from specimens received in non-commercially manufactured viral collection and transport media, or in media and sample collection kits not yet authorized by FDA for COVID-19 testing should be cautiously evaluated and the patient potentially subjected to extra precautions such as additional clinical monitoring, including collection of an additional specimen. Methodology: Nucleic Acid Amplification Test (NAAT) includes RT-PCR or TMA Additional information about COVID-19 can be found at the [facility] website: [email or web address]/[email or web address]. Test performed at [facility] [id number] [place] [phone] Director: MARYANNE FIGUEROA DO,MPH FIRST TEST YES 05/13/2020 3:50 PM CDT [facility] EMPLOYED IN HEALTHCARE NO 05/13/2020 3:50 PM CDT [facility] SYMPTOMATIC DEFINED BY CDC NO 05/13/2020 3:50 PM CDT [facility] DATE OF SYMPTOM ONSET NO 05/13/2020 4:06 PM CDT [facility] HOSPITALIZATION STATUS NO 05/13/2020 3:50 PM CDT [facility] PATIENT IN ICU NO 05/13/2020 3:50 PM CDT [facility] RESIDENT OF [facility] NO 05/13/2020 3:50 PM CDT [facility] NOT 05/13/2020 3:50 PM CDT [facility] PATIENT'S RACE WHITE OR 05/13/2020 3:50 PM CDT [facility] ETHNICITY NONHISPANIC 05/13/2020 3:50 PM CDT [facility] SOURCE (QST) NASOPHARYNGEAL SWAB 05/13/2020 3:50 PM CDT [facility] NASOPHARYNGEAL SWAB / Unknown 05/13/2020 10:52 AM CDT us Soraida Medinaloch DO MICROBIOLOGY - GENERAL ORDE RABLES Final Result [facility] [address] [place] [address], [facility] [address] [place] [address], documented in this encounter Visit Diagnoses Diagnosis Preoperative testing- Primary Preoperative examination, unspecified Fibroid Leiomyoma of uterus, unspecified documented in this encounter Care Teams Semiautomatic Stitcher Operator Relationship Specialty Start Date End Date Himanshu Mars MD [address] [phone] PCP - General FAMILY PRACTICE 10/16/18 documented as of this encounter
[2024-04-24] MEDS: KETOROLAC 30 MG/ML VIAL (*BKC) IM (19:08)
[2024-04-24] MEDS: HYDROcodone/acetaminophen (*CRX) 5-325 MG TABLET 1 TAB PO (19:09)
[2024-04-24] MEDS: methocarbamoL 750 MG TABLET 1500 MG PO (19:09)
[2024-04-24 19:18] VITALS: BP 130/84; PULSE 72; RESP 15; O2SAT 100
--- NOTE | 2024-04-24 19:55 | ED_ITS ---
HPI - Back Pain/Injury General Chief Complaint: Back Pain/Injury Stated Complaint: BACK PAIN Time Seen by Provider: 04/24/24 18:10 History of Present Illness HPI Narrative: 43-year-old otherwise healthy female presenting with musculoskeletal back pain after lifting and twisting while lifting up the sink at home. Denies any bowel or bladder issues. No neuropathy or sciatica type symptoms. No radiculopathy. No fever chills. No trauma otherwise. She is otherwise in her normal state of health. Did not take anything prior to arrival. Related Data Allergies Allergy/AdvReac Type Severity Reaction Status Date / Time codeine Allergy Difficulty Verified 04/24/24 15:56 Breathing Sulfa (Sulfonamide Allergy Rash Verified 04/24/24 15:56 Antibiotics) Review of Systems Review of Systems: As reviewed above in HPI Exam Narrative: GENERAL: [Well-appearing, well-nourished, and in no acute distress.] HEAD: [Normocephalic, atraumatic.] EYES: [PERRLA and EOMI.] ENT: Nares clear, no rhinorrhea or epistaxis. Mucous membranes moist. NECK: Supple. CHEST: [Clear to auscultation. No respiratory distress.] HEART: [Regular rate and rhythm]. No murmur heard. [Normal peripheral pulses.] ABDOMEN: [Soft, nondistended], [nontender], [No rigidity or guarding] EXTREMITIES: Normal range of motion. [No edema.] Straight leg raise on left- sided elicit pain, contralateral straight leg raise negative. Plantar dorsiflexion 5/5, able to bear weight and ambulate in the ED. SKIN: Warm, dry, no rash. NEURO: [No focal deficits]. Alert and oriented [x3.] No saddle anesthesia, no strength loss in the limbs, no footdrop. No sensory changes. No neuropathy. EHL and FHL full. Normal gait. PSYCH: [Normal mood and affect.] Course Vital Signs Vital signs: Vital Signs Temperature 36.4 C 04/24/24 16:08 Pulse Rate 81 04/24/24 16:08 Respiratory Rate 20 04/24/24 16:08 Blood Pressure 100/72 04/24/24 16:08 Pulse Oximetry 100 04/24/24 16:08 Oxygen Delivery Room Air 04/24/24 16:08 Temperature 36.4 C 04/24/24 16:08 Pulse Rate 72 04/24/24 19:18 Respiratory Rate 15 04/24/24 19:18 Blood Pressure 130/84 04/24/24 19:18 Pulse Oximetry 100 04/24/24 19:18 Oxygen Delivery Room Air 04/24/24 16:08 MDM - Back Pain/Injury MDM Narrative Medical decision making narrative: 43-year-old female presenting after a twisting injury while lifting up a heavy seeing. She has left-sided paraspinal muscular pain low back pain. No radiculopathy or neurological symptoms. No saddle anesthesia, no cauda equina or conus medullaris symptoms or red flags on exam or history. Normal vital signs. Patient's x-rays were negative for any fractures or dislocations. She is safe and stable for outpatient treatment and was given a dose of Toradol, [place] and Robaxin. Prescription medications sent to her pharmacy as well as return precautions provided. Medical Records Attestation: I reviewed the patient's medical records. Imaging Data Attestation: I personally reviewed and interpreted this imaging study as follows: My impression: Impressions Lumbar Spine X-Ray 04/24/24 17:23 IMPRESSION: No acute fracture or traumatic malalignment detected in the lumbar spine. Discharge Plan Discharge Clinical Impression: Strain of lumbar region Patient Disposition: Home, Self-Care Condition: Stable Instructions: Antibiotic Form, Acute Low Back Pain (ED), Lower Back Exercises (ED) Additional Instructions: Your x-rays reassuring, no fracture discs or anything obviously bulging. Your symptoms very consistent with a muscle spasm and strain of the lumbar region. We will send you home with a combination medications to try. Follow-up with regular doctor. Return to the ER if you have increased pain in your back, you develop lower extremity weakness/numbness/paralysis, you have numbness or tingling in your private parts, or you are unable to control your ability to urinate/stool. Patient Language: Cam[place]onian Prescriptions: New acetaminophen [Tylenol Extra Strength] 500 mg tablet 1,000 mg PO TID PRN (Reason: pain) Qty: 30 0RF ketorolac 10 mg tablet 10 mg PO Q8H PRN (Reason: pain) 5 Days Qty: 20 0RF Rx Instructions: maximum total duration of 5 days from all oral, intranasal, or parenteral formulations methocarbamol 750 mg tablet 750 mg PO TID PRN (Reason: pain) Qty: 20 0RF lidocaine 5 % adhesive patch,medicated 1 patch topical DAILY Qty: 15 0RF Rx Instructions: leave on most painful area for up to 12 hrs Follow-up/Referrals: WARNERRADHA M.D. [Primary Care Provider] - Time of Disposition: 18:59
== END 2024-04-24 19:19 | disposition home or self-care (01) ==
PROVIDERS: Emergency Provider Student in an Organized Health Care Education/Training Program; PCP Family Medicine
DX: S39.012A Strain of muscle, fascia and tendon of lower back, initial encounter (principal); X50.0XXA Overexertion from strenuous movement or load, initial encounter
CPT/HCPCS: 72110; 96372; 99283; A9270; J1885